=== PATIENT | female | born 1925 | race Caucasian/White ===

== ENCOUNTER 2016-06-12 14:12 | Emergency (ER) | payer OTHER, MEDICAID ==
[~2016-06-12] VITALS: Ht 160 cm; Wt 93.4 kg
[~2016-06-12 14:12] MED LIST: BENA1TAB2 PO; DIF100 PO; DIPH-179 PO; GABA-533 PO; GLIP5TAB13 PO; HUM10VIA3 SQ; HUM10VIA3 SUBCUT; LOSA1TAB36 PO; NEU300 PO; NITR-85; ONDA4TAB11 PO; PRO40 PO; RANI-281 PO; RANI-362 PO; SIMV40TA2 PO; TRIA15CR4 TP
[2016-06-12 14:22] VITALS: BP 149/80; PULSE 64; RESP 16; TEMP 97; O2SAT 96
[2016-06-12] MEDS ORDERED: NACL 0.9% 1,000 ML IV SCH (14:32)
[2016-06-12 15:37] LABS: HEMATOCRIT 36.5 % (36-48); HEMOGLOBIN 12.6 g/dL (12.0-16.0); MEAN CORPUSCULAR HEMOGLOBIN 31 pg (27-31); MEAN CORPUSCULAR HGB CONC 34 % (32-36); MEAN CORPUSCULAR VOLUME 91 fL (79.0-98.0); WHITE BLOOD COUNT (AUTO) 9.5 K/uL (4.8-10.8)
[2016-06-12 15:49] LABS: INR 1.1 (0.8-1.2); PROTHROMBIN TIME 12.2 SECS (9.5-12.5)
[2016-06-12 16:00] LABS: ANION GAP 6 (5-15); CALCIUM 9.1 mg/dL (8.4-11.0); CHLORIDE 103 mmol/L (98-107); CREATININE 1.04 mg/dL (0.55-1.30); GLUCOSE 119 mg/dL (70-99); SODIUM SERUM 138 mmol/L (136-145); UREA NITROGEN, BLOOD 15 mg/dL (8-21)
[2016-06-12 16:05] LABS: ALANINE AMINOTRANSFERASE 24 U/L (12-78); ASPARTATE AMINOTRANSFERASE 21 U/L (10-37); LIPASE 78 U/L (73-393); TOTAL BILIRUBIN 0.7 mg/dL (0.0-1.0); TOTAL PROTEIN, SERUM 7.5 g/dL (6.4-8.3)
[2016-06-12 16:16] LABS: PLATELET COUNT (AUTO) 216 K/uL (130-430)
[2016-06-12 16:19] LABS: ATYPICAL LYMPHOCYTES % 6 % (0-0); BASOPHILS % (MANUAL) 0 % (0-2); EOSINOPHILS % (MANUAL) 3 % (0-7); LYMPHOCYTES % (MANUAL) 66 % (20-46); MONOCYTES % (MANUAL) 3 % (0-11)
[2016-06-12 16:29] LABS: BILIRUBIN,URINE NEGATIVE (NEGATIVE); BLOOD, URINE NEGATIVE (NEGATIVE); CLARITY/URINE CLEAR (CLEAR); COLOR,URINE YELLOW (YELLOW); GLUCOSE,URINE NEGATIVE (NEGATIVE); KETONES,URINE NEGATIVE (NEGATIVE); LEUKOCYTE ESTERASE ,URINE NEGATIVE (NEGATIVE); NITRITE, URINE NEGATIVE (NEGATIVE); PH,URINE 6.5 (5.0-8.0); PROTEIN URINE NEGATIVE (NEGATIVE); UROBILINOGEN,URINE 0.2 (0.2-1.0)
--- NOTE | 2016-06-12 16:50 | NUR ---
AMBULATED TO BED 3
[2016-06-12] MEDS ORDERED: ONDANSETRON HCL 4 MG/2 ML VIAL IVP ONE (17:00)
[2016-06-12] MEDS ORDERED: KETOROLAC TROMETHAMINE 15 MG VIAL IVP ONE (17:00)
--- NOTE | 2016-06-12 17:00 | NUR ---
89 year old female presents with acute onset, constant, worsening nausea, diffuse abdominal pain, and dizziness for 3 days.Pt [id number].
--- NOTE | 2016-06-12 17:10 | NUR ---
ER at bedside examining patient.
[2016-06-12] MEDS ORDERED: ONDANSETRON 4 MG ODT TAB PO ONE (17:30)
[2016-06-12] MEDS ORDERED: IBUPROFEN 400 MG TABLET PO ONE (17:30)
[2016-06-12 18:07] VITALS: BP 131/74; PULSE 69; RESP 16; TEMP 98.2; O2SAT 97
--- NOTE | 2016-06-12 18:07 | NUR ---
Patient given written and verbal discharge instructions and verbalizes understanding. ER MD Maynard discussed with patient the results and treatment provided. Patient in stable condition. ID arm band removed. Rx of zofran given. Patient educated on pain management and to follow up with PMD. Pain Scale 0/10. Opportunity for questions provided and answered.
== END 2016-06-12 18:07 | disposition home or self-care (01) ==
LOC: SED 14:12
DX: R10.84 Generalized abdominal pain (principal); R11.2 Nausea with vomiting, unspecified; R42 Dizziness and giddiness; E11.9 Type 2 diabetes mellitus without complications; I10 Essential (primary) hypertension; Z88.1 Allergy status to other antibiotic agents; Z88.5 Allergy status to narcotic agent; Z90.710 Acquired absence of both cervix and uterus; Z95.1 Presence of aortocoronary bypass graft
CPT/HCPCS: 36415; 70450; 71010; 74176; 80053; 81003; 83605; 83690; 84484; 85007; 85027; 85610; 85730; 87040; 93005; 99285; Q0162